=== PATIENT | male | born 1930 | race Hispanic/Latino ===

== ENCOUNTER 2016-08-10 18:36 | Inpatient (IN) | payer OTHER ==
[2016-08-10 20:17] LABS: MANUAL DIFF NEEDED? NO
[2016-08-10 20:24] LABS: BASO% 0.2 % (0.0-0.8); EOS# 0.15 X1000 (0.0-0.7); EOS% 2.4 % (0.0-10.0); HEMATOCRIT 40.4 % (42.0-52.0); HEMOGLOBIN 13.6 g/dL (14.0-18.0); LYMPH# 1.66 X1000 (1.2-3.4); LYMPH% 26.6 % (20.5-51.1); MCH 31.2 PG (27-31); MCHC 33.7 g/dL (33-37); MCV 92.7 FL (81-99); MONO# 0.52 X1000 (0.11-0.59); MONO% 8.3 % (1.7-9.3); MPV 10.6 FL (7.4-10.4); NEUT% 62.5 % (42.2-75.2); PLT 145 X1000 (130-400); RBC 4.36 XMIL (4.7-6.1)
[2016-08-10 20:41] LABS: AGAP 13; ALKALINE PHOSPHATASE 93 U/L (32-122); AMYLASE 107 U/L (20-200); BUN 19 mg/dL (8-22); CALCIUM 9.1 mg/dL (8.8-10.2); CHLORIDE 104 mmol/L (98-107); COSMO 281; GOT 17 U/L (10-34); GPT 14 U/L (10-44); LIPASE 22 U/L (13-60); POTASSIUM 4.5 mmol/L (3.5-5.1); SODIUM 140 mmol/L (136-145); TCO2 23 mmol/L (25-35); TOTAL BILIRUBIN 0.48 mg/dL (0.20-1.00); TOTAL PROTEIN 6.8 g/dL (6.3-8.3)
[2016-08-10] MEDS ORDERED: SODIUM CHLORIDE 0.9% INJ ONE (21:39)
[2016-08-10] MEDS ORDERED: G.I. COCKTAIL PO ONE (21:39)
[2016-08-10] MEDS ORDERED: PROTONIX IV ONE (21:39)
--- NOTE | 2016-08-10 21:40 | PROVIDER DOCUMENTATION ---
HPI-Abdominal Pain/GI Problem - General Chief Complaint: Epigastric Pain Stated Complaint: ABD PAIN, NAUSEA Time Seen by Provider: 08/10/16 20:45 Source: patient, family Allergies/Adverse Reactions: Patient Allergies Allergy/AdvReac Type Severity Reaction Status Date / Time aspirin Allergy Unknown Unknown Verified 08/10/16 20:20 ibuprofen Allergy Unknown Unknown Verified 08/10/16 20:20 Home Medications: Home Medication List Medication Instructions Recorded Confirmed Last Taken Type Alfuzosin HCl [Uroxatral] 10 mg PO QAM #0 tab.er.24h 02/18/12 08/10/16 08/09/16 Rx Dexlansoprazole [Dexilant] 60 mg PO DAILY 08/24/15 08/10/16 08/09/16 History Ezetimibe [Zetia] 10 mg PO DAILY 08/24/15 08/10/16 08/09/16 History Irbesartan 300 mg PO DAILY 08/24/15 08/10/16 08/09/16 History Isosorbide Mononitrate E.r. [Imdur] 30 mg PO DAILY 08/24/15 08/10/16 08/09/16 History ROSUVAstatin [Crestor] 20 mg PO DAILY 08/24/15 08/10/16 08/09/16 History Terbinafine [Lamisil] 250 mg PO DAILY 08/24/15 08/10/16 08/09/16 History Metoprolol Succinate 25 mg PO QAM 08/10/16 08/10/16 08/09/16 History - History of Present Illness-ABD Nature of Presenting Problems: Pt is an 86 y/o M c chief complaint of epigastric pain and lower abd pain x 2 days. He describes the pain as aching sensation without radiation. He denies any nausea, vomiting, or diarrhea. Pt has a h/o MD. On arrival, pt is in minimal distress. Review of Systems - Adult - REVIEW OF SYSTEMS - ADULT Constitutional: reports: no symptoms reported. denies: chills, fatique Eyes: reports: no symptoms reported. denies: blurred vision, double vision Ears, Nose, Mouth & Throat: reports: no symptoms reported. denies: ear pain, nose pain, throat pain Cardiovascular: reports: no symptoms reported. denies: chest pain, orthopnea Respiratory: reports: no symptoms reported. denies: cough, shortness of breath , wheezing Gastrointestinal: reports: abdominal pain. denies: nausea, vomiting Genitourinary: reports: no symptoms reported. denies: dysuria, hematuria Musculoskeletal: reports: no symptoms reported. denies: bone pain, joint pain Integumentary: reports: no symptoms reported. denies: itching, rash Neurological: reports: no symptoms reported. denies: numbness, paresthesia Psychiatric: reports: no symptoms reported. denies: anxiety, emotional problems Endocrine: reports: no symptoms reported. denies: cold intolerance, heat intolerance Hematologic/Lymphatic: reports: no symptoms reported. denies: blood clots, low blood count Allergic/Immunologic: reports: no symptoms reported. denies: allergic reactions , food allergy All Other Systems: Reviewed and Negative Past History - Adult - PAST MEDICAL HISTORY-ADULT Review of Records: reports: Old Records Reviewed, Nursing Assessment Review, Medications Reviewed, Social history reviewed & non-contributory. Major Childhood Illnesses: reports: denies history Cardiovascular: reports: denies history Respiratory: reports: denies history Gastrointestinal: reports: denies history Obstetrical/Gynecological: reports: denies history Genitourinary: reports: dialysis, prostate cancer Musculoskeletal: reports: denies history Neurological: reports: denies history Endocrine/Immune: reports: denies history Other Conditions: reports: denies history - PRIOR SURGERIES/PROCEDURES Surgical/Procedure History: reports: joint replacement - IMMUNIZATION STATUS Childhood Immunizations: See Nurse Assessment Flu Vaccine: See Nurse Assessment - FAMILY HISTORY Family History: reviewed, not pertinent - SOCIAL HISTORY Smoking: denies Substance Use: none/never Alcohol Use Frequency: never Living Situation: family Physical Exam-General - PHYSICAL EXAM-ADULT Initial Vital Signs Reviewed: Yes - CONSTITUTIONAL General Appearance: appears well, alert, no apparent distress - EYES Eyes: PERRL/EOMI, pink conjunctivae - HEAD, EARS, NOSE, MOUTH & THROAT HENMT: normocephalic/atraumatic, moist mucous membranes, normal ENT inspection - NECK Neck: non-tender, full range of motion, supple - RESPIRATORY Respiratory: chest non-tender, lungs clear, normal breath sounds - CARDIOVASCULAR Cardiovascular: normal peripheral pulses, regular rate, rhythm, no edema - GASTROINTESTINAL (ABDOMEN) Abdominal Exam: normal bowel sounds, soft, tenderness (tenderness to epigastric region and suprapubic tenderness on palpation) - LYMPHATIC Lymphatic: no adenopathy - MUSCULOSKELETAL Back Exam: normal inspection, no CVA tenderness, no vertebral tenderness Extremity: normal range of motion, non-tender, normal gait - SKIN Integumentary: normal color, normal turgor, warm/dry - NEUROLOGIC Neurologic: grossly normal, no motor/sensory deficits - PSYCHIATRIC Psych/Mental Status: normal mood/affect, normal thought content, normal thought process, oriented x 3 Progress - PLAN OF CARE/RESULTS Progress/Plan/Lab Results: Orders Category Date Time Status Admit - [facility] Routine AdmDCTranf 08/11/16 01:35 Ordered Activity - Up with Assistance ORDERED Care 08/11/16 01:35 Active Apply Mechanical Device [QM] ORDERED Care 08/11/16 01:35 Active Intake and Output-Strict Q 8-HR ASSESS Care 08/11/16 01:35 Active NG/OG/Feeding Tube Insertion ORDERED Care 08/10/16 23:05 Active Nursing- MD Consult Request ROUTINE Care 08/11/16 01:35 Active Saline Loc DIRECTED Care 08/10/16 19:17 Completed Vital Signs Order Q 8-HR ASSESS Care 08/11/16 01:35 Active Physician/Provider Consults Routine Cons 08/11/16 08:00 Ordered NPO Diet 08/10/16 19:17 Active CHEST-PORTABLE [RAD] Stat Exams 08/10/16 23:[address] ABD/PELVIS W/ IV CONT ONLY [CT] Stat Exams 08/10/16 21:39 Taken AMYLASE [CHEM] Stat Lab 08/10/16 19:10 Completed BASIC METABOLIC PANEL [CHEM] Routine Lab 08/11/16 06:00 Ordered CBC WITH ELECTRONIC DIFF [HEME] Routine Lab 08/11/16 06:00 Uncollected CBC WITH ELECTRONIC DIFF [HEME] Stat Lab 08/10/16 19:10 Completed CK PROFILE [SP CHEM] Stat Lab 08/10/16 19:10 Completed COMPREHENSIVE METABOLIC PANEL [CHEM] Stat Lab 08/10/16 19:10 Completed LIPASE [CHEM] Stat Lab 08/10/16 19:10 Completed TROPONIN T Stat Lab 08/10/16 19:10 Completed URINALYSIS W/POSS RFLX CULT [URINALYSIS] Stat Lab 08/10/16 20:33 Completed 0.9% Sodium Chloride Inj [Ns] 1,000 ml Med 08/11/16 01:35 Active IV 100 mls/hr Acetaminophen [Tylenol] Med 08/11/16 01:35 Active 650 mg PO Q6H PRN PRN Alfuzosin E.r. [Uroxatral] Med 08/11/16 09:00 Active 10 mg PO QAM Ezetimibe [Zetia] Med 08/11/16 09:00 Active 10 mg PO DAILY Irbesartan [Avapro] Med 08/11/16 09:00 Active 300 mg PO DAILY Isosorbide Mononitrate E.r. [Imdur] Med 08/11/16 09:00 Active 30 mg PO DAILY Lido/Hsieh Alk/Al&mg Hydrox [G.i. Cocktail] Med 08/10/16 21:39 Discontinued 30 ml PO NOW ONE Metoprolol Succinate E.r. [Toprol Xl] Med 08/11/16 09:00 Active 25 mg PO QAM Morphine Med 08/11/16 01:28 Active 2 mg IV Q4H PRN PRN Morphine Med 08/10/16 23:05 Discontinued 4 mg IV NOW ONE Omeprazole [Prilosec] Med 08/11/16 07:00 Active 20 mg PO DAILY@0700 Ondansetron [Zofran] Med 08/10/16 23:05 Discontinued 4 mg IV NOW ONE Ondansetron [Zofran] Med 08/11/16 01:35 Active 4 mg IV Q4-6H PRN PRN Pantoprazole [Protonix] Med 08/10/16 21:39 Discontinued 40 mg IV NOW ONE ROSUVAstatin [Crestor] Med 08/11/16 09:00 Active 20 mg PO DAILY Sodium Chloride 0.9% Med 08/10/16 21:39 Discontinued 10 ml INJ NOW ONE Telemetry [OM.EQ] Routine Oth 08/11/16 01:35 Active EKG [EKG] Stat Ther 08/10/16 18:59 Ordered Transfer/Admit Order [TRANSFER] Routine Transfer 08/10/16 23:49 Completed Transfer/Admit Order [TRANSFER] Routine Transfer 08/11/16 01:25 Completed Laboratory Tests 08/10/16 08/10/16 08/10/16 19:10 19:10 19:10 WBC 6.23 RBC 4.36 L Hgb 13.6 L Hct 40.4 L MCV 92.7 MCH 31.2 H MCHC 33.7 RDW Std Deviation 13.8 Plt Count 145 MPV 10.6 H Immature Gran % (Auto) 0.0 Neut % (Auto) 62.5 Lymph % (Auto) 26.6 Esmeralda % (Auto) 8.3 Eos % (Auto) 2.4 Baso % (Auto) 0.2 Immature Gran # (Auto) 0.00 Neut # (Auto) 3.89 Lymph # (Auto) 1.66 Esmeralda # (Auto) 0.52 Eos # (Auto) 0.15 Baso # (Auto) 0.01 Sodium 140 Potassium 4.5 Chloride 104 Carbon Dioxide 23 L Anion Gap 13 BUN 19 Creatinine 0.9 Estimated GFR/1.73 m2 > 60 BUN/Creatinine Ratio 21 Glucose 90 Calculated Osmolality 281 Calcium 9.1 Total Bilirubin 0.48 AST 17 ALT 14 Alkaline Phosphatase 93 Creatine Kinase 138 Troponin T Total Protein 6.8 Albumin 4.0 Globulin 2.8 Albumin/Globulin Ratio 1.4 Amylase 107 Lipase 22 Urine Source Urine Color Urine Turbidity Urine pH Ur Specific [place] Urine Protein Ur Glucose (Stick) Ur Ketones (Stick) Urine Blood Urine Nitrite Urine Bilirubin Urobilinogen Dipstick Urine Leukocytes Urine WBC (Auto) Urine RBC (Auto) U Epithel Cells (Auto) Urine Bacteria (Auto) 08/10/16 08/10/16 19:10 20:33 WBC RBC Hgb Hct MCV MCH MCHC RDW Std Deviation Plt Count MPV Immature Gran % (Auto) Neut % (Auto) Lymph % (Auto) Esmeralda % (Auto) Eos % (Auto) Baso % (Auto) Immature Gran # (Auto) Neut # (Auto) Lymph # (Auto) Esmeralda # (Auto) Eos # (Auto) Baso # (Auto) Sodium Potassium Chloride Carbon Dioxide Anion Gap BUN Creatinine Estimated GFR/1.73 m2 BUN/Creatinine Ratio Glucose Calculated Osmolality Calcium Total Bilirubin AST ALT Alkaline Phosphatase Creatine Kinase Troponin T < 0.010 Total Protein Albumin Globulin Albumin/Globulin Ratio Amylase Lipase Urine Source CLEAN CATCH Urine Color YELLOW Urine Turbidity CLEAR Urine pH 6.0 Ur Specific [place] 1.023 Urine Protein TRACE A Ur Glucose (Stick) NEGATIVE Ur Ketones (Stick) TRACE A Urine Blood TRACE A Urine Nitrite NEGATIVE Urine Bilirubin NEGATIVE Urobilinogen Dipstick NORMAL Urine Leukocytes NEGATIVE Urine WBC (Auto) <10 Urine RBC (Auto) <10 U Epithel Cells (Auto) <10 Urine Bacteria (Auto) NEGATIVE Vital Signs - 24 hr 08/10/16 08/10/16 08/11/16 18:42 23:23 02:08 Temperature 98.0 F 98.6 F 98.6 F Pulse Rate 72 74 76 Respiratory 18 18 18 Rate Blood Pressure 144/68 142/66 128/56 O2 Sat by Pulse 97 95 96 Oximetry - CT/MRI 1 CT Study: Abdomen, Pelvis Impression: Abnormal (small bowel obstruction, dilated fluid-filled bowel in the mid to lower abd. prob transition point is in the R abd laterally. inguinal hernia containing a portion of the bladder- radiology) - CONSULTS/PCP/HOSPITALIST Notification #1 *Consult/PCP/Hospitalist*: Dr. Newell (General Surgery) Time Discussed: 23:04 Reason/Comments: Admit to the hospitalist, will see pt in the morning. #2 Consult: Dr. Sorto (Hospitalist) Time Discussed: 23:05 Reason/Comments: Will see pt in the ER. Departure - Departure Time of Disposition Order: 23:04 DIAGNOSIS: Small bowel obstruction Disposition: ADMITTED INPATIENT 09 Certified Medical Emergency: Emergent Condition: Stable Attestation - Physician/ CARLOS Attestation Patient care was provided by Advanced Practice Provider:: Yes Advanced Practice Provider:: Tee Mesa Advanced Practice Provider documentation review:: The Mid-level provider documentation, treatment plan and medical decision making was reviewed by the physician who agrees with all treatment and medical decision making by the MLP.
[2016-08-10 21:50] LABS: URINE CULTURE NEEDED? NO; URINE MICRO REVIEW NEEDED? NO; URINE SOURCE CLEAN CATCH
[2016-08-10 21:54] LABS: BILIRUBIN URINE NEGATIVE (NEGATIVE); BLOOD URINE TRACE (NEGATIVE); COLOR YELLOW; GLUCOSE URINE NEGATIVE (NEGATIVE); LEUKOCYTES URINE NEGATIVE (NEGATIVE); NITRITE URINE NEGATIVE (NEGATIVE); PROTEIN URINE TRACE mg/dL (NEGATIVE); SP GRAVITY URINE 1.023; TURBIDITY URINE CLEAR (CLEAR); UROBILINOGEN URINE NORMAL (NORMAL)
[2016-08-10 21:56] LABS: UR EPITHELIAL CELLS <10 /HPF (<10); URINE BACTERIA NEGATIVE /HPF; URINE RBC <10 /HPF (<10); URINE WBC <10 /HPF (<10)
[2016-08-10] MEDS ORDERED: ZOFRAN IV ONE (23:05)
[2016-08-10] MEDS ORDERED: MORPHINE IV ONE (23:05)
[2016-08-11] MEDS ORDERED: MORPHINE IV PRN (01:28)
[2016-08-11] MEDS ORDERED: NS 1,000 ML IV SCH (01:35)
[2016-08-11] MEDS ORDERED: ZOFRAN IV PRN (01:35)
[2016-08-11 05:41] LABS: MANUAL DIFF NEEDED? NO
--- NOTE | 2016-08-11 05:48 | EKG Report ---
Test Performed on : 08/10/2016 7:05:13 PM Test Reason : epigastric pain Blood Pressure : / mmHG Vent. Rate : 082 BPM Atrial Rate : 082 BPM P-R Int : 216 ms QRS Dur : 094 ms QT Int : 386 ms P-R-T Axes : 034 -55 111 degrees QTc Int : 450 ms Sinus rhythm. with 1st degree AV block. Low voltage QRS Left anterior fascicular block T wave abnormality, consider lateral ischemia Abnormal ECG When compared with ECG of 24-AUG-2015 19:34, premature ventricular complexes. are no longer present T wave inversion more evident in Lateral leads Unconfirmed Result
[2016-08-11 05:50] LABS: BASO% 0.3 % (0.0-0.8); EOS# 0.03 X1000 (0.0-0.7); EOS% 0.5 % (0.0-10.0); HEMOGLOBIN 12.8 g/dL (14.0-18.0); LYMPH# 1.18 X1000 (1.2-3.4); LYMPH% 19.9 % (20.5-51.1); MCH 31.2 PG (27-31); MCHC 33.7 g/dL (33-37); MCV 92.7 FL (81-99); MONO# 0.56 X1000 (0.11-0.59); MONO% 9.4 % (1.7-9.3); NEUT% 69.9 % (42.2-75.2); PLT 136 X1000 (130-400)
--- NOTE | 2016-08-11 05:51 | HISTORY AND PHYSICAL ---
PRIMARY CARE PROVIDER: Abdiaziz Matias Jr., MD CHIEF COMPLAINT: Abdominal pain. HISTORY OF PRESENT ILLNESS: Mr. Dasilva is an 86-year-old male who presented to the ER [facility] with complaints of abdominal pain and nausea that started last night at approximately 1800 on 08/09/2016. The patient denies any vomiting but does report nausea. He denies any diarrhea. He states that his last bowel movement was yesterday as well and was of normal consistency and color. He denied any blood or black appearance to his stools. The patient reports that his abdominal pain extends from the umbilical area up to the epigastric area. He describes it as a crampy type pain that is intermittent. He reports that eating did make it worse. The patient did state that he took Pepto-Bismol this morning on 08/10/2016, though it did not provide much relief. The patient denies any previous history of abdominal surgeries though does report that he does have a history of peptic ulcer disease, gastroesophageal reflux disease, and a history of gastrointestinal bleeding. Upon evaluation in the ER, the patient was found to have a CT abdomen and pelvis with IV contrast that was positive for small bowel obstruction. It was dilated. It revealed bowel in the mid to lower abdomen, probable transition point is the right abdomen laterally. There is a left inguinal hernia containing a portion of the bladder. An NG tube was placed in the ER and the patient will be admitted at this time for treatment and evaluation of his small bowel obstruction. REVIEW OF SYSTEMS: A 14-point review of systems was conducted with the patient and all were negative except for pertinent positives mentioned in the above HPI. The patient denies any dizziness, headache, chest pain, shortness of breath, dysuria or urinary frequency, or pain, numbness and tingling in extremities. PAST MEDICAL HISTORY: 1. Dyslipidemia. 2. Gastroesophageal reflux disease. 3. Benign prostatic hypertrophy. 4. Osteoarthritis. 5. Hypertension. 6. Coronary artery disease with previous myocardial infarction several years ago. 7. Peptic ulcer disease. PAST SURGICAL HISTORY: History of bilateral total knee arthroplasty. SOCIAL HISTORY: The patient is a nonsmoker. He reports no previous or current history of tobacco, alcohol or illicit drug use. The patient is a male who is not Citizen Of [place] speaking though did have a family member at bedside whom he did consent to allow to translate for him. FAMILY HISTORY: The patient does not know the past medical history of his mother or father, though does report that he has brothers who have had cancer of unknown etiology and that diabetes mellitus runs in his family as well. ALLERGIES: The patient reports allergies to aspirin and ibuprofen though, upon further investigation of this, this was likely placed on his allergy list due to his history of peptic ulcer disease and past medical history of gastrointestinal bleeding. HOME MEDICATIONS: 1. Alfuzosin 10 mg p.o. every a.m. This is the extended release tablet. 2. Dexilant 60 mg p.o. daily. 3. Zetia 10 mg p.o. daily. 4. Irbesartan 300 mg p.o. daily. 5. Imdur 30 mg p.o. daily. 6. Metoprolol 25 mg p.o. every a.m. 7. Crestor 20 mg p.o. daily. 8. Lamisil 250 mg p.o. daily. DIAGNOSTIC DATA AND LABORATORY RESULTS: White blood cell count 6.23, hemoglobin 13.6, hematocrit 40.4, platelet count 145. Sodium 140, potassium 4.5, chloride 104, bicarb 23, BUN 19, creatinine 0.9, glucose 90, calcium 9.1. Liver function tests are within normal limits. CK 138. Troponin less than 0.01. Amylase 107, lipase 22. Urinalysis was obtained via clean catch, was positive for trace protein, trace ketones, and trace blood, and was negative for nitrites, leukocytes, white blood cells, or bacteria. EKG showed sinus rhythm with first-degree AV block, left anterior fascicular block, and T wave abnormality, with a ventricular rate of 82, QTC was 450. CT abdomen and pelvis showed a small bowel obstruction. There is dilated fluid-filled bowel in the mid to lower abdomen, probable transition point is the right abdomen laterally. There is also a left inguinal hernia containing a portion of the bladder. There is a small hiatal hernia. PHYSICAL EXAMINATION: VITAL SIGNS: Temperature 98.6. Heart rate 74. Respirations 18. Blood pressure 142/66. Oxygen saturation is 96% on room air. L. GENERAL: The patient is a well-nourished, well-developed, pleasant, 86-year-old male who was resting in the ER stretcher. He was awake and alert, able to answer all questions appropriately via his culinary chef at bedside. HEENT: Head is atraumatic, normocephalic. Pupils are equal, round, reactive to light, 3 mm bilaterally, and brisk. Conjunctivae pink. Oral mucosa was moist. Oropharynx was clear. NECK: Supple. Trachea midline. No JVD noted. No carotid bruits noted upon auscultation bilaterally. CARDIOVASCULAR: Normal S1, S2. No murmurs, gallops or rubs appreciated. Regular rate and rhythm. PULMONARY: The patient has symmetrical chest expansion bilaterally. Lung sounds were clear to auscultation in bilateral full angulo. ABDOMEN: The abdomen is soft. The patient does report some tenderness upon palpation in the umbilical and epigastric area. Bowel sounds were present in all four quadrants, were slightly hypoactive. EXTREMITIES: No cyanosis, clubbing or edema noted. Pulse, motor and sensory intact in all extremities as well. Pedal pulses were 3+ bilaterally. Radial pulses were 3+ bilaterally. INTEGUMENTARY: The patient's skin color is normal for his race, is warm, dry and intact. No lesions or sores noted. NEUROLOGIC: Patient alert and oriented to person, place, time and situation. Cranial nerves II through XII are grossly intact. ASSESSMENT AND PLAN: 1. Small bowel obstruction. For this, the patient has been placed n.p.o. An NG tube has been inserted. We will allow the patient to have bowel rest. We have placed a consult with Dr. Vaca with Surgery. The patient will receive fluid resuscitation via normal saline at 100 mL per hour. We will treat his nausea and pain with Zofran and morphine p.r.n. and will continue to follow. 2. Gastroesophageal reflux disease. Will continue with omeprazole 20 mg p.o. daily. 3. Hypertension. Will continue with the patient's home medications of metoprolol and irbesartan. Will continue to follow. 4. Hyperlipidemia. Will continue with the patient's Crestor and Zetia. 5. Benign prostatic hypertrophy. Will continue with the patient's Alfuzosin. The patient will be placed on the medical floor with telemetry. He will have vital signs every 8. DVT prophylaxis will be provided with SCDs. We will repeat a CBC and BMP in the a.m. Further orders and recommendations pending hospital course, diagnostic studies, and physician evaluation. Dictated by TERA Mauro for Kriss Sorto MD
[2016-08-11 06:16] LABS: AGAP 12; BUN 18 mg/dL (8-22); CALCIUM 8.7 mg/dL (8.8-10.2); CHLORIDE 103 mmol/L (98-107); COSMO 281; POTASSIUM 4.5 mmol/L (3.5-5.1); SODIUM 139 mmol/L (136-145); TCO2 24 mmol/L (25-35)
[2016-08-11] MEDS: PRILOSEC PO SCH (06:27)
--- NOTE | 2016-08-11 07:29 | CONSULTATION ---
DATE OF CONSULTATION: 08/11/2016 REQUESTING PHYSICIAN: Kriss Sorto MD REASON FOR CONSULTATION: Consult concerning possible small bowel obstruction. HISTORY OF PRESENT ILLNESS: An 81-year-old male presenting to the ER with complaints of abdominal pain and nausea that started the night before presentation. He denies any vomiting but does report nausea. He reports his last passage of flatus and the last bowel movement were the night of presentation last night. He denies any kind of change in stool and denies any kind of changes to his diet. Denies any kind of recent intake of any uncooked fish or meat products. He denies drinking from well water. He was seen in the emergency department and had a CT scan that is suggestive of a small bowel obstruction. He had NG tube placed at that time and was admitted. Patient is not currently having any abdominal pain, I was asked to evaluate the patient. When he did have abdominal pain, he describes it as cramping and intermittent nothing seemed to make it better. He did state that eating made it worse but again his pain has improved since then. PAST MEDICAL HISTORY: Dyslipidemia, gastroesophageal reflux disease, BPH, osteoarthritis, hypertension, coronary artery disease and peptic ulcer disease. PAST SURGICAL HISTORY: Includes bilateral knee arthroplasties. No intra- abdominal surgery. SOCIAL HISTORY: Nonsmoker. Denies alcohol, tobacco or illicit drugs. He is currently translated by a family member at the bedside. FAMILY HISTORY: Unsure about his mother or father but reports that unknown etiology of cancer and diabetes run in his family. ALLERGIES: Aspirin and ibuprofen. HOME MEDICATIONS: Alfuzosin, Dexilant, Zetia, Imdur, metoprolol, Crestor and Lamisil. REVIEW OF SYSTEMS: A full 10 point review of systems obtained, and negative except as specified in HPI. PHYSICAL EXAMINATION: Vital Signs: The patient is currently afebrile. His vital signs have been stable. General: No acute distress and resting comfortably in bed. HEENT: Normocephalic, atraumatic. Pupils equal, round, react to light. Mucous membranes moist. Oropharynx benign. Neck: Supple. Trachea midline. NG tube in place with clear output. No bilious output noted with only 50 mL recorded. Cardiovascular: Regular rate and rhythm. Lungs: Grossly clear. Abdomen: Soft, nontender, nondistended. Bowel sounds auscultated. Extremities : Moves all extremities well. Neurologic: Grossly intact. Skin: No signs of jaundice. Vascular: All extremities perfused. LABORATORY: From this morning, hematocrit is 38, platelet count 136,000, white blood cell count is 5.9. BMP reviewed and grossly within normal limits. CT scan independently reviewed and radiology report reviewed. There is some mild dilation of the small bowel in the proximal aspect. ASSESSMENT AND PLAN: An 86-year-old male with multiple medical comorbidities and possible small bowel obstruction. 1. Multiple medical comorbidities at this time being managed by the hospitalist service. 2. Small bowel obstruction. At this time, not overly clinically impressed with a presentation for a small-bowel obstruction. There is some suggestion on CT scan that he might have a mild small-bowel obstruction, but we will repeat abdominal films this morning to evaluate further. At this time, I do not think he has a surgical abdomen. His symptoms have resolved. This may be related to an enteritis-like picture but we will follow with you clinically. If his clinical picture changes or his overall imaging suggests a worsening obstruction we may need to consider surgery but at this time we will hold off. I appreciate the consult. [facility] HOSPITALLukasz
--- NOTE | 2016-08-11 08:00 | Diag Imaging Result Document ---
PROCEDURE NAME: CHEST-PORTABLE - 08/10/2016 SINGLE FRONTAL RADIOGRAPH OF THE LOWER CHEST AND UPPER ABDOMEN: COMPARISON: 09/05/2012. FINDINGS: The newly placed NG tube projects below the diaphragm and is assumed to be in the stomach in the expected position. The lung bases are overexposed and are difficult to evaluate. The visualized bowel gas patterns are unremarkable. IMPRESSION: Recent placement of NG tube in the expected position as described.
--- NOTE | 2016-08-11 08:43 | Diag Imaging Result Document ---
PROCEDURE NAME: CT ABD/PELVIS W/ IV CONT ONLY - 08/10/2016 CT OF THE ABDOMEN WITH INTRAVENOUS CONTRAST: FINDINGS: The current study is compared with that of 08/24/2015. There are fibrotic changes in the lower lobes and lingula. The opacity which was previously present in the left lower lobe has largely resolved. The spleen and adrenal glands are not enlarged. There is a hiatal hernia. There are no gallstones. There are some calcified granulomata present in the liver. There are cysts in the kidneys. There is no evidence of hydronephrosis. The pancreas is unremarkable in appearance. There is some fluid and retained food particles in the stomach. There are fluid filled small bowel loops apparently in the distal jejunum or proximal ileum with a transitional point on the left side around image 77. The distal small bowel is not distended. This appearance was not present on the previous study. The appendix is normal in appearance. CT OF THE PELVIS WITH INTRAVENOUS CONTRAST: FINDINGS: There is no evidence of free fluid. There is a small portion of the urinary bladder which herniates into a left inguinal hernia. IMPRESSION: 1. Partial small bowel obstruction. 2. Hiatal hernia and left inguinal hernia.
--- NOTE | 2016-08-11 09:43 | PROGRESS NOTE ---
DATE: 08/11/2016 SUBJECTIVE: The patient is feeling better. He is having no nausea now. His discomfort started at 5:00 p.m. yesterday, and most of his symptoms have resolved. He has a little tenderness generally on palpation. CT scan of the abdomen showed a partial small bowel obstruction. Surgeon, Dr. Vaca, has seen him and thought that clinically he probably would not have to do any surgery and that we continue to watch. He has an NG tube down. X-rays have been taken this morning, but I do not have those results yet. OBJECTIVE: Vital signs show blood pressure 123/61, respirations 18, pulse 60, temperature 97.5 degrees Fahrenheit. HEENT: He is normocephalic. EOMs intact. PERRLA. Throat clear. Lungs: Clear to auscultation and percussion without rhonchi, rales, or wheezes. Heart: Regular rate and rhythm without murmurs, gallops, or friction rubs. Abdomen: Soft with hypoactive bowel sounds. I hear no high-pitched tinkling, though. Mild tenderness diffusely on palpation. Neurologic: Intact grossly. DIAGNOSTIC DATA: White count is 5940, hemoglobin 12.8, hematocrit 38.0. Sodium is 139, potassium 4.5, chloride 103, CO2 is 24, GFR greater than 60, creatinine 0.8, BUN of 18. ASSESSMENT: Mild partial small bowel obstruction. PLAN: Continue conservative management.
--- NOTE | 2016-08-11 11:24 | Diag Imaging Result Document ---
PROCEDURE NAME: ABDOMEN FLAT/UPRIGHT - 08/11/2016 FLAT AND UPRIGHT RADIOGRAPH OF THE ABDOMEN: COMPARISON: 05/03/2012. FINDINGS: There is contrast media in the urinary bladder from a recent CT. There are nonspecific bowel gas and stool patterns. No air-fluid levels are identified. There is no evidence of large- volume free abdominal gas. There is no definite organomegaly. IMPRESSION: Nonspecific abdomen.
[2016-08-11] MEDS: ZETIA PO SCH (11:43)
[2016-08-11] MEDS: UROXATRAL PO SCH (11:43)
[2016-08-11] MEDS: TOPROL XL PO SCH (11:44)
[2016-08-11] MEDS: IMDUR PO SCH (11:44)
[2016-08-11] MEDS: CRESTOR PO SCH (11:44)
[2016-08-11] MEDS: AVAPRO PO SCH (11:45)
[2016-08-11] MEDS ORDERED: CHLORASEPTIC SPRAY MT PRN (22:56)
[2016-08-12] MEDS: PRILOSEC PO SCH (06:24)
--- NOTE | 2016-08-12 06:50 | PROGRESS NOTE ---
DATE: 08/12/2016 SUBJECTIVE: Patient doing well. No major issues. He has reported passing flatus and having a bowel movement. I discussed all this through the hat forming machine feeder in the room. The patient is without major complaints. He says his abdomen is less distended. OBJECTIVE: Vital Signs: Patient is currently afebrile. His vital signs have been stable. He did have recorded bowel movement. General exam: No acute distress. Alert, interactive. male looks stated age. HEENT: Normocephalic, atraumatic. Pupils equal, round, react to light. Mucous membranes moist. Oropharynx benign.Neck: Supple. Trachea midline. Cardiovascular: Regular rate and rhythm. Lungs: Grossly clear. Abdomen less distended than yesterday. Soft and nontender. Extremities: Moves all extremities well. Neurologic: Grossly intact. Skin: No signs of jaundice. Vascular: All extremities perfused. LABORATORY: None this morning. Abdominal film from yesterday reviewed; nonspecific bowel gas pattern. CT scan with partial small bowel obstruction. ASSESSMENT/PLAN: An 86-year-old male with resolving partial small bowel obstruction. Resolving partial small bowel obstruction. At this time we will clamp his NG tube. He has not had much output. It does not look bilious. We will start him on clear liquid diet. If he seems to improve, may consider removing his NG tube and monitor him closely. He has general return of bowel functioning and does have auscultated bowel sounds. We will continue to monitor the patient with you. I appreciate the consult.
[2016-08-12] MEDS: IMDUR PO SCH (08:37)
[2016-08-12] MEDS: UROXATRAL PO SCH (08:37)
[2016-08-12] MEDS: ZETIA PO SCH (08:37)
[2016-08-12] MEDS: CRESTOR PO SCH (08:37)
[2016-08-12] MEDS: TOPROL XL PO SCH (08:38)
[2016-08-12] MEDS: AVAPRO PO SCH (08:39)
[2016-08-12] MEDS ORDERED: PNEUMOVAX 23 IM ONE (09:00)
--- NOTE | 2016-08-12 09:40 | PROGRESS NOTE ---
DATE: 08/12/2016 SUBJECTIVE: The patient seems to be feeling better. He is having no abdominal pain at this time. Abdominal film from yesterday showed nonspecific bowel pattern. CT scan previously had shown partial small bowel obstruction. OBJECTIVE: Vital Signs: Blood pressure 120/49, respirations 18, pulse 83, and temp 98.3 degrees Fahrenheit. HEENT: Normocephalic. EOM's intact. PERRLA. Throat clear. Lungs: Clear to auscultation and percussion without rhonchi, rales, or wheezes. Heart: Regular rate rhythm without murmurs, gallops, or friction rubs. Abdomen: Soft and less distended. Does not seem to have much tenderness. His NG tube has been clamped. He is started on some clear liquids; we will see how he does with this. ASSESSMENT: Small bowel obstruction--partial. PLAN: Continue treatment. Appreciate help from Dr. Vaca.
[2016-08-12] MEDS: TYLENOL PO PRN ×2 (14:17→20:00)
[2016-08-13] MEDS: TYLENOL PO PRN (05:13)
[2016-08-13] MEDS: PRILOSEC PO SCH (06:23)
--- NOTE | 2016-08-13 07:27 | PROGRESS NOTE ---
DATE: 08/13/2016 SUBJECTIVE: Patient doing well. No major issues. He tolerated having his NG tube clamped and tolerated clear liquid diet. He is having some coarse breath sounds, but denies shortness of breath. OBJECTIVE: Vital Signs: Patient is currently afebrile. His vital signs have been stable. General exam: No acute distress. Alert, interactive, male. Looks stated age. HEENT: Normocephalic, atraumatic. Pupils equal, round, reactive to light. Mucous membranes moist. Oropharynx benign. Neck: Supple. Trachea midline. Cardiovascular: Regular rate and rhythm. Lungs: Coarse breath sounds noted bilaterally. Abdomen: Less distended from yesterday, soft, nontender. Extremities: Moves all extremities. Neurologic: Grossly intact. Skin: No signs of jaundice. Vascular: All extremities perfused. LABORATORY: None from this morning. ASSESSMENT AND PLAN: An 86-year-old, male with resolving partial small bowel obstruction. 1. Resolving partial small bowel obstruction. At this time, we will remove his nasogastric tube. Keep him on clear liquids for this point and monitor him closely. 2. Coarse breath sounds. At this time may need a chest x-ray. We will defer further workup to his primary care team. This may have been related to the nasogastric tube being in place and causing some obstructive upper airway issue.
[2016-08-13] MEDS: UROXATRAL PO SCH (08:58)
[2016-08-13] MEDS: TOPROL XL PO SCH (08:58)
[2016-08-13] MEDS: IMDUR PO SCH (08:59)
[2016-08-13] MEDS: CRESTOR PO SCH (08:59)
[2016-08-13] MEDS: AVAPRO PO SCH (08:59)
[2016-08-13] MEDS: ZETIA PO SCH (08:59)
[2016-08-13] MEDS ORDERED: SOLU-MEDROL IV ONE (10:09)
--- NOTE | 2016-08-13 10:43 | PROGRESS NOTE ---
DATE: 08/13/2016 SUBJECTIVE: The patient is sleeping soundly. I did try to shake him just a little bit and he still did not wake up. I think he is just very sleepy at this point. PHYSICAL EXAMINATION: Lungs: Have a few scattered rales and wheezes that he has not had before. Vital Signs: He is running a low-grade temperature of about 99 degrees Fahrenheit. Heart: Regular rate and rhythm without murmurs, gallops, or friction rubs. Abdomen: Soft. Active bowel sounds to slightly hypoactive bowel sounds. Does not seem to have any tenderness. Did not wake up during this time. ASSESSMENT: 1. Partial small bowel obstruction. 2. Bronchospasm. 3. Possible bronchitis. PLAN: We will start him on IV antibiotics. We will get x-rays of chest and abdomen. We will get a blood count. Last blood count was done a couple of days ago and was normal.
--- NOTE | 2016-08-13 14:51 | Diag Imaging Result Document ---
PROCEDURE NAME: CHEST-2 VIEWS - 08/13/2016 2 VIEWS THE CHEST: FINDINGS: The inspiration is suboptimal and there is bibasilar atelectasis which was not the case on 09/05/2012. IMPRESSION: Bibasilar atelectasis.
--- NOTE | 2016-08-13 14:52 | Diag Imaging Result Document ---
PROCEDURE NAME: ABDOMEN FLAT/UPRIGHT - 08/13/2016 AP FLAT AND UPRIGHT ABDOMEN: FINDINGS: There is gas and stool in the distal colon. Compared to 08/11/2016, there is slightly more stool in the left colon and small bowel gas. IMPRESSION: Slightly worsened constipation.
[2016-08-13] MEDS: ROCEPHIN 1 GM/NS 50 ML IV SCH (20:55)
--- NOTE | 2016-08-14 06:05 | PROGRESS NOTE ---
DATE: 08/14/2016 SUBJECTIVE: The patient is doing well. No major issues reported by the patient or his family member in the room. He says he is continuing to pass gas. He is tolerating clear liquids. OBJECTIVE: Vital Signs: Patient is currently afebrile. His vital signs have been stable. General: No acute distress. Alert, interactive, male looks stated age. HEENT: Normocephalic, atraumatic. Pupils equal, round and reactive to light. Mucous membranes moist. Oropharynx benign. Neck: Supple. Trachea midline. Cardiovascular: Regular rate and rhythm. Lungs: Improved and less coarse from yesterday. Abdomen: Soft. Mildly distended. Nontender. Extremities: Moves all extremities. Neurologic: Grossly intact. Skin: No signs of jaundice. Vascular: All extremities perfused. LABORATORY: None from this morning. Imaging from yesterday reviewed. He does have what appears to be constipation on the x-ray. ASSESSMENT AND PLAN: An 86-year-old male with partial small bowel obstruction likely due to constipation. 1. Small bowel obstruction. At this time, we will advance the patient to full liquid diet. We will also start him on MiraLAX daily. We will see how patient tolerates this and potentially advance his diet if he continues to tolerate it tomorrow.
[2016-08-14] MEDS: PRILOSEC PO SCH (06:09)
[2016-08-14 06:12] LABS: MANUAL DIFF NEEDED? NO
[2016-08-14 06:30] LABS: HEMATOCRIT 38.6 % (42.0-52.0); LYMPH# 1.06 X1000 (1.2-3.4); LYMPH% 11.5 % (20.5-51.1); MCH 31.7 PG (27-31); MCHC 33.7 g/dL (33-37); MCV 94.1 FL (81-99); MONO# 0.63 X1000 (0.11-0.59); MONO% 6.9 % (1.7-9.3); MPV 10.4 FL (7.4-10.4); NEUT% 81.6 % (42.2-75.2); PLT 106 X1000 (130-400)
[2016-08-14 06:46] LABS: AGAP 11; BUN 17 mg/dL (8-22); CALCIUM 8.6 mg/dL (8.8-10.2); CHLORIDE 103 mmol/L (98-107); COSMO 280; POTASSIUM 3.9 mmol/L (3.5-5.1); SODIUM 139 mmol/L (136-145); TCO2 25 mmol/L (25-35)
[2016-08-14] MEDS: UROXATRAL PO SCH (08:11)
[2016-08-14] MEDS: CRESTOR PO SCH (08:11)
[2016-08-14] MEDS: ZETIA PO SCH (08:13)
[2016-08-14] MEDS: AVAPRO PO SCH (08:13)
[2016-08-14] MEDS: ROCEPHIN 1 GM/NS 50 ML IV SCH ×2 (08:14→20:57)
[2016-08-14] MEDS: IMDUR PO SCH (08:14)
[2016-08-14] MEDS: MIRALAX PO SCH (08:14)
[2016-08-14] MEDS: TOPROL XL PO SCH (08:15)
--- NOTE | 2016-08-14 10:03 | PROGRESS NOTE ---
DATE: 08/14/2016 SUBJECTIVE: The patient is not having any pain at this time. OBJECTIVE: Vital signs: Show a temp of 97.9 degrees Fahrenheit, pulse 62, respirations 12, blood pressure 107/45. HEENT: Normocephalic. EOMs intact. PERRLA. Throat clear. Lungs: Clear to auscultation at this time so he has had improvement. Chest x-ray had showed atelectasis in the bases bilaterally. He has been started on incentive spirometry but I am not sure that he has used much of it. Heart: Regular rate and rhythm without murmurs, gallops, or friction rubs. Abdomen: Soft. Active bowel sounds. No organomegaly or tenderness at this point. Abdominal film did show more constipation. Neurological: Intact grossly. ASSESSMENT: 1. Partial small bowel obstruction. 2. Bronchospasm. 3. Bronchitis. 4. Atelectasis. PLAN: Will try to get him up and walk him and see if that will help both his bowels and his lungs. He certainly is sounding better with his lungs today. He has been started on MiraLAX by Dr. Vaca.
[2016-08-15 05:35] LABS: MANUAL DIFF NEEDED? NO
[2016-08-15 05:39] LABS: BASO% 0.3 % (0.0-0.8); EOS# 0.27 X1000 (0.0-0.7); EOS% 3.7 % (0.0-10.0); HEMATOCRIT 37.5 % (42.0-52.0); HEMOGLOBIN 12.6 g/dL (14.0-18.0); LYMPH# 1.28 X1000 (1.2-3.4); LYMPH% 17.6 % (20.5-51.1); MCH 31.3 PG (27-31); MCHC 33.6 g/dL (33-37); MCV 93.1 FL (81-99); MONO# 0.74 X1000 (0.11-0.59); MONO% 10.2 % (1.7-9.3); NEUT% 68.2 % (42.2-75.2); PLT 120 X1000 (130-400); RBC 4.03 XMIL (4.7-6.1)
[2016-08-15 05:52] LABS: AGAP 11; BUN 15 mg/dL (8-22); CHLORIDE 104 mmol/L (98-107); COSMO 277; POTASSIUM 3.7 mmol/L (3.5-5.1); SODIUM 138 mmol/L (136-145); TCO2 23 mmol/L (25-35)
--- NOTE | 2016-08-15 07:31 | Diag Imaging Result Document ---
PROCEDURE NAME: CHEST-PORTABLE - 08/15/2016 PORTABLE CHEST X-RAY: COMPARISON: 08/13/2016. FINDINGS: Lung volumes are improved. There is improvement in the mild streaky atelectasis in the lung bases. No new infiltrates. IMPRESSION: Improvement from prior.
--- NOTE | 2016-08-15 07:36 | PROGRESS NOTE ---
DATE: 08/15/2016 SUBJECTIVE: Patient doing well. Tolerated his full liquids. Reports that he is passing gas. Denies any abdominal pain. OBJECTIVE: Vital Signs: The patient is currently afebrile. His vital signs have been stable. General Examination: No acute distress. Alert, interactive, male. Looks stated age. HEENT: Normocephalic, atraumatic. Pupils equal, round, reactive to light. Mucous membranes moist. Oropharynx benign. Neck: Supple. Trachea midline. Cardiovascular: Regular rate and rhythm. Lungs: Improved and less coarse from previous days. Abdomen: Soft. Minimally distended. Nontender. Extremities: Moves all extremities. Neurologic: Grossly intact. Skin: No signs of jaundice. Vascular: All extremities perfused. Laboratory: Reviewed for this morning. ASSESSMENT/PLAN: An 86-year-old, male with partial small bowel obstruction, likely due to constipation. Partial small bowel obstruction. At this time, we will advance the patient to a regular diet. He has been started on MiraLAX. We will continue to follow the patient while he is in the hospital.
[2016-08-15] MEDS: PRILOSEC PO SCH (08:44)
--- NOTE | 2016-08-15 09:14 | PROGRESS NOTE ---
DATE: 08/15/2016 SUBJECTIVE: The patient seems to have no problems at this point. He has been started on a regular diet. He has not yet had a bowel movement today, had a small one on the 25th. He has been constipated. His breathing is better. OBJECTIVE: Vital Signs: Blood pressure 131/66, respirations 16, pulse 63, temperature 98.6 degrees Fahrenheit. HEENT: Normocephalic. EOMs intact. Throat clear. Lungs: Clear to auscultation and percussion without rhonchi, rales, or wheezes. Heart: Regular rate and rhythm without murmurs, gallops, or friction rubs. Abdomen: Soft. Active bowel sounds and much improved. Still no bowel movement, however, in the last 3 days. Neurological: Examination intact grossly. Labs: His chest x-ray shows much improvement of the atelectasis. ASSESSMENT: 1. Partial small bowel obstruction, improving. 2. Bronchospasm. 3. Bronchitis. 4. Atelectasis. PLAN: We have advanced diet. We will see how he does today. If he has a bowel movement some time later today and lungs continue to improve, consider discharge tomorrow.
[2016-08-15] MEDS: CRESTOR PO SCH (10:32)
[2016-08-15] MEDS: TOPROL XL PO SCH (10:32)
[2016-08-15] MEDS: UROXATRAL PO SCH (10:32)
[2016-08-15] MEDS: ZETIA PO SCH (10:32)
[2016-08-15] MEDS: IMDUR PO SCH (10:32)
[2016-08-15] MEDS: AVAPRO PO SCH (10:33)
[2016-08-15] MEDS: MIRALAX PO SCH (10:33)
[2016-08-15] MEDS: ROCEPHIN 1 GM/NS 50 ML IV SCH ×2 (10:34→21:14)
[2016-08-16 06:19] LABS: MANUAL DIFF NEEDED? NO
[2016-08-16 06:26] LABS: BASO% 0.3 % (0.0-0.8); EOS# 0.23 X1000 (0.0-0.7); HEMATOCRIT 36.7 % (42.0-52.0); HEMOGLOBIN 12.4 g/dL (14.0-18.0); LYMPH# 1.44 X1000 (1.2-3.4); MCH 31.4 PG (27-31); MCHC 33.8 g/dL (33-37); MCV 92.9 FL (81-99); MONO# 0.62 X1000 (0.11-0.59); MONO% 10.7 % (1.7-9.3); MPV 10.1 FL (7.4-10.4); PLT 136 X1000 (130-400); RBC 3.95 XMIL (4.7-6.1)
[2016-08-16] MEDS: PRILOSEC PO SCH (06:30)
--- NOTE | 2016-08-16 06:44 | PROGRESS NOTE ---
DATE: 08/16/2016 SUBJECTIVE: The patient is tolerating a regular diet, having bowel movements. No major issues reported. OBJECTIVE: Vital Signs: Patient is currently afebrile. His vital signs have been stable. General: No acute distress. Alert, interactive. male looks stated age. HEENT: Normocephalic, atraumatic. Pupils are round, react to light. Mucous membranes moist. Oropharynx benign. Neck: Supple. Trachea midline. Cardiovascular: Regular rate and rhythm. Lungs: Grossly clear. Abdomen: Soft. Minimally distended. Nontender. Extremities: Moves all extremities. Neurologic: Grossly intact. Skin: No signs of jaundice. Vascular: All extremities perfused. LABORATORY: Currently pending. ASSESSMENT/PLAN: An 86-year-old, male with partial small-bowel obstruction likely due to constipation. Partial small-bowel obstruction: At this time, essentially resolved. He is tolerating a regular diet having bowel movements. Would continue him on MiraLAX once discharged.
[2016-08-16 06:57] LABS: AGAP 11; BUN 15 mg/dL (8-22); CALCIUM 8.3 mg/dL (8.8-10.2); CHLORIDE 103 mmol/L (98-107); COSMO 277; POTASSIUM 3.9 mmol/L (3.5-5.1); SODIUM 138 mmol/L (136-145); TCO2 24 mmol/L (25-35)
[2016-08-16 07:45] VITALS: BP 133/62
[2016-08-16] MEDS: MIRALAX PO SCH (09:18)
[2016-08-16] MEDS: CRESTOR PO SCH (09:19)
[2016-08-16] MEDS: ZETIA PO SCH (09:19)
[2016-08-16] MEDS: TOPROL XL PO SCH (09:19)
[2016-08-16] MEDS: IMDUR PO SCH (09:19)
[2016-08-16] MEDS: AVAPRO PO SCH (09:21)
[2016-08-16] MEDS: UROXATRAL PO SCH (09:21)
[2016-08-16] MEDS: ROCEPHIN 1 GM/NS 50 ML IV SCH (09:22)
--- NOTE | 2016-08-16 14:41 | DISCHARGE SUMMARY ---
ADMISSION DATE: 08/11/2016 DISCHARGE DATE: 08/16/2016 CONSULTATIONS: Thomas Vaca MD. FINAL DIAGNOSES: 1. Partial small bowel obstruction. 2. Bronchospasm. 3. Bronchitis. CONDITION ON DISCHARGE: Much improved. He is now eating and having bowel movements. He is having no more coughing and lungs are clear. During his hospitalization he came in with abdominal pain and a CT scan showed a partial small bowel obstruction. He also had some atelectasis and I placed him on incentive spirometry. He was wheezing a little bit and had some rales in the bases of his lungs. After antibiotics he has improved considerably. PHYSICAL EXAM: Vital Signs: Stable. HEENT: Normocephalic. EOMs intact. PERRLA. Throat clear. Lungs: Clear to auscultation and percussion without rhonchi, rales, or wheezes. Repeat chest x-ray showed resolution of atelectasis. Heart: Regular rate rhythm without murmurs, gallops, or friction rubs. Abdomen: Soft. Active bowel sounds. No organomegaly or tenderness. Neurological: Intact grossly. PLAN: He will be discharged home on his 10 mg every morning, Dexilant 60 mg daily, Zetia 10 mg daily, irbesartan 300 mg daily, Imdur 30 mg daily, metoprolol 25 mg daily, Crestor 20 mg at bedtime. He has been on Lamisil tablets 350 mg daily[address] will place him also on Cefzil 500 mg p.o. b.i.d. for 7 more days for his bronchitis, and he should be on MiraLAX 17 g daily. Otherwise, seen him back in the office in 1 week .
== END 2016-08-16 10:18 | disposition home or self-care (01) | DRG 389 ==
LOC: ED 18:36 → 4N 08-11 02:24
PROVIDERS: ADMIT Emergency Medicine; ATTEND Emergency Medicine
PROC: 0D9670Z Drainage of Stomach with Drainage Device, Via Natural or Artificial Opening (ICD-10-PCS; principal; 2016-08-10)
DX: K56.69 Other intestinal obstruction (principal); J98.11 Atelectasis; I10 Essential (primary) hypertension; K21.9 Gastro-esophageal reflux disease without esophagitis; K59.00 Constipation, unspecified; Z87.11 Personal history of peptic ulcer disease; K40.90 Unilateral inguinal hernia, without obstruction or gangrene, not specified as recurrent; J40 Bronchitis, not specified as acute or chronic; J98.01 Acute bronchospasm; E78.5 Hyperlipidemia, unspecified; N40.0 Benign prostatic hyperplasia without lower urinary tract symptoms; M19.90 Unspecified osteoarthritis, unspecified site; I25.10 Atherosclerotic heart disease of native coronary artery without angina pectoris; Z96.653 Presence of artificial knee joint, bilateral; I25.2 Old myocardial infarction; Z80.9 Family history of malignant neoplasm, unspecified; Z83.3 Family history of diabetes mellitus; Z79.899 Other long term (current) drug therapy
CPT/HCPCS: 36415; 71010; 71020; 74020; 74177; 80048; 80053; 81001; 82150; 82550; 83690; 84484; 85025; 93005; 94761; 94799; 96374; 96375; 96376; C9113; J0696; J2270; J2405; J2930; J7030; Q9967; 97530-GP; S0164